=== PATIENT | female | born 1995 | race Caucasian/White ===

== ENCOUNTER 2022-05-16 09:46 | Outpatient (CLI) | payer OTHER, SELFPAY ==
[2022-05-16 10:42] LABS: Beta HCG Quantitative 132.88 mIU/ML
== END 2022-05-16 09:47 | disposition home or self-care (01) ==
LOC: ANHLAB 09:48
PROVIDERS: Visit Provider Obstetrics & Gynecology
DX: O26.851 Spotting complicating pregnancy, first trimester (principal)
CPT/HCPCS: 36415; 84702

== ENCOUNTER 2022-05-18 15:31 | Outpatient (CLI) | payer OTHER, SELFPAY ==
[2022-05-18 21:44] LABS: Beta HCG Quantitative 30.49 mIU/ML
[2022-05-24 18:11] LABS: Progesterone 0.7 ng/mL (***)
== END 2022-05-18 15:32 | disposition home or self-care (01) ==
LOC: ANHLAB 15:33
PROVIDERS: Visit Provider Obstetrics & Gynecology
DX: O26.851 Spotting complicating pregnancy, first trimester (principal); Z3A.00 Weeks of gestation of pregnancy not specified
CPT/HCPCS: 36415; 84144; 84702

== ENCOUNTER 2022-05-22 15:22 | Outpatient (CLI) | payer OTHER, SELFPAY | END 2022-05-22 15:23 | disposition home or self-care (01) | PROVIDERS: Visit Provider Obstetrics & Gynecology | DX: O03.9 Complete or unspecified spontaneous abortion without complication (principal) | CPT/HCPCS: 36415; 86850; 86900; 86901 ==

== ENCOUNTER 2022-06-02 15:53 | Outpatient (CLI) | payer OTHER, SELFPAY ==
[2022-06-02 16:36] LABS: Beta HCG Quantitative < 2.39 mIU/ML
== END 2022-06-02 15:54 | disposition home or self-care (01) ==
LOC: ANHLAB 15:55
PROVIDERS: Visit Provider Obstetrics & Gynecology
DX: O03.9 Complete or unspecified spontaneous abortion without complication (principal)
CPT/HCPCS: 36415; 84702

== ENCOUNTER 2022-06-10 16:50 | Outpatient (CLI) | payer OTHER, SELFPAY ==
[2022-06-14 05:15] LABS: Progesterone 20.7 ng/mL (***)
== END 2022-06-10 16:51 | disposition home or self-care (01) ==
PROVIDERS: Visit Provider Obstetrics & Gynecology
DX: O09.299 Supervision of pregnancy with other poor reproductive or obstetric history, unspecified trimester (principal)
CPT/HCPCS: 36415; 84144; 84702

== ENCOUNTER 2022-06-12 15:43 | Outpatient (CLI) | payer OTHER, SELFPAY | END 2022-06-12 15:44 | disposition home or self-care (01) | LOC: ANHLAB 15:45 | PROVIDERS: Visit Provider Obstetrics & Gynecology | DX: O09.299 Supervision of pregnancy with other poor reproductive or obstetric history, unspecified trimester (principal); Z3A.00 Weeks of gestation of pregnancy not specified | CPT/HCPCS: 36415; 84702 ==

== ENCOUNTER 2022-06-23 15:20 | Outpatient (CLI) | payer OTHER, SELFPAY ==
--- NOTE | ~2022-06-23 | US_ITS ---
US OB <=14 wk fetus w TV DATE: 06/23/2022 16:07 INDICATION: Brownish vaginal discharge. Positive test. Unknown last menstrual period. TECHNIQUE: Real-time imaging and Doppler analysis of the pelvis via transabdominal and transvaginal a pproaches COMPARISON: None FINDINGS: The uterus measures 7.5 cm height, 4.2 cm AP and 5.3 cm transverse dimension. There is a no rmal-appearing gestational sac with normal surrounding decidual reaction. pole is identified wi th crown-rump length of 0.25 cm consistent with estimated gestational age of 5 weeks 6 days +/- 4 day s and VITALY of 02/17/2023. heart rate of 129 bpm. The right ovary is not visualized. Left ovary measures 3.4 x 2.7 x 3.3 cm. No pelvic mass or abnormal free pelvic fluid collection is detected. IMPRESSION: Estimated gestational age of 5 weeks 6 days +/- 4 days; VITALY: 02/17/2023 Reviewed, dictated and finalized at Location [facility]. Reviewed, dictated and finalized at location A. RUNNER IMPRESSION: Estimated gestational age of 5 weeks 6 days +/- 4 days; VITALY: 023
== END 2022-06-23 15:21 | disposition home or self-care (01) ==
LOC: ANHIMG 15:21
PROVIDERS: Visit Provider Obstetrics & Gynecology
DX: O26.851 Spotting complicating pregnancy, first trimester (principal); Z3A.01 Less than 8 weeks gestation of pregnancy
CPT/HCPCS: 76801; 76817

== ENCOUNTER 2022-06-23 16:21 | Outpatient (CLI) | payer OTHER, SELFPAY | END 2022-06-23 16:22 | disposition home or self-care (01) | LOC: ANHLAB 16:22 | PROVIDERS: Visit Provider Obstetrics & Gynecology | DX: O26.851 Spotting complicating pregnancy, first trimester (principal) | CPT/HCPCS: 36415; 76801; 76817; 84702 ==

== ENCOUNTER 2022-07-10 12:49 | Outpatient (CLI) | payer OTHER, SELFPAY ==
[2022-07-10 13:11] LABS: Basophils Absolute Auto 0.1 K/mm3 (0.0-0.1); Basophils Percent Auto 0.5 % (0.2-1.2); Eosinophils Absolute Auto 0.2 K/mm3 (0-0.3); Eosinophils Percent Auto 1.7 % (0-4.4); Hematocrit 37.9 % (37.0-47.0); Hemoglobin 12.9 g/dL (12.0-15.0); Immature Granulocyte Absolute 0.06 K/mm3 (0.00-0.031); Immature Granulocyte Percent A 0.5 % (0-0.5); Lymphocytes Absolute Auto 1.96 K/mm3 (0.9-3.2); Lymphocytes Percent Auto 17.9 % (18.3-44.2); Mean Corpuscular Hemoglobin 28.9 pg (26-34); Monocytes Absolute Auto 0.8 K/mm3 (0.1-0.6); Monocytes Percent Auto 7.3 % (2.6-8.5); Neutrophils Absolute Auto 7.9 K/mm3 (1.3-6.7); Neutrophils Percent Auto 72.1 % (45.5-73.1); Platelet Count Result 265 k/mm3 (150-375); Red Blood Count 4.46 M/mm3 (4.2-5.4); Red Cell Distribution Width 12.5 % (11.5-14.5); White Blood Count 10.9 K/mm3 (4.5-10.0)
[2022-07-10 13:11] LABS: Add Urine Microscopic? NO; Appearance Urine Clear (Clear); Bilirubin Urine Negative (Negative); Blood Urine Negative (Negative); Color Urine Yellow (Yellow); Glucose Urine UA Negative (Negative); Ketones Urine Negative (Negative); Leukocyte Esterase Ur Negative LEU/UL (NEGATIVE); Nitrate Urine Negative (Negative); Protein Urine Negative (Negative); Specific Grav Ur >= 1.030 (1.001-1.035); Urobilinogen Urine 0.2 mg/dL (<2.0)
[2022-07-10 13:18] LABS: Bacteria Urine Trace /hpf; RBC Urine 0-2 /hpf (0-2); Squamous Epithelial Cell Urine Few /hpf (Few)
[2022-07-10 14:11] LABS: HIV 1/2 Ab P24 Ag Result Negative (Negative)
[2022-07-10 14:44] LABS: Vitamin D 25 Hydroxy 28.5 ng/mL
[2022-07-10 15:05] LABS: Hepatitis B Surface Antigen Negative (Negative); Rubella IgG Antibody 13.8 IU/ML
[2022-07-10 15:16] LABS: Hepatitis C Virus Antibody Negative (Negative)
[2022-07-13 09:22] LABS: Rapid Plasma Reagin Non-Reactive (NonReactive)
[2022-07-15 17:01] LABS: Hematocrit 38.1 % (35.0-45.0); Hemoglobin 12.9 g/dL (11.7-15.5); MCH 29.3 pg (27.0-33.0); MCV 86.6 fL (80.0-100.0); RDW 12.4 % (11.0-15.0)
== END 2022-07-10 12:50 | disposition home or self-care (01) ==
LOC: ANHLAB 12:50
PROVIDERS: Visit Provider Obstetrics & Gynecology
DX: Z34.90 Encounter for supervision of normal pregnancy, unspecified, unspecified trimester (principal); Z3A.00 Weeks of gestation of pregnancy not specified
CPT/HCPCS: 36415; 81003; 82306; 83021; 84443; 85025; 86592; 86703; 86762; 86787; 86803; 86850; 86900; 86901; 87086; 87340; G0432

== ENCOUNTER 2022-11-21 08:05 | Outpatient (CLI) | payer OTHER, SELFPAY ==
[2022-11-21 09:31] LABS: Basophils Absolute Auto 0.1 K/mm3 (0.0-0.1); Basophils Percent Auto 0.6 % (0.2-1.2); Eosinophils Absolute Auto 0.1 K/mm3 (0-0.3); Eosinophils Percent Auto 0.6 % (0-4.4); Hematocrit 34.6 % (37.0-47.0); Hemoglobin 11.7 g/dL (12.0-15.0); Immature Granulocyte Percent A 1.9 % (0-0.5); Lymphocytes Absolute Auto 1.46 K/mm3 (0.9-3.2); Lymphocytes Percent Auto 13.5 % (18.3-44.2); Mean Corpuscular HGB Conc 33.8 g/dl (32-36); Mean Corpuscular Hemoglobin 30.8 pg (26-34); Mean Corpuscular Volume 91.1 fl (80-100); Mean Platelet Volume 9.3 fl (7.4-10.4); Monocytes Absolute Auto 0.6 K/mm3 (0.1-0.6); Monocytes Percent Auto 5.5 % (2.6-8.5); Neutrophils Absolute Auto 8.4 K/mm3 (1.3-6.7); Neutrophils Percent Auto 77.9 % (45.5-73.1); Platelet Count Result 227 k/mm3 (150-375); Red Cell Distribution Width 12.8 % (11.5-14.5); White Blood Count 10.8 K/mm3 (4.5-10.0)
[2022-11-21 09:43] LABS: Glucose 1 Hour PP 50gm Dose 135 mg/dL
== END 2022-11-21 08:06 | disposition home or self-care (01) ==
LOC: ANHLAB 08:06
PROVIDERS: Visit Provider Registered Nurse
DX: Z34.90 Encounter for supervision of normal pregnancy, unspecified, unspecified trimester (principal); Z3A.00 Weeks of gestation of pregnancy not specified
CPT/HCPCS: 36415; 82947; 85025

== ENCOUNTER 2022-12-01 06:32 | Outpatient (CLI) | payer OTHER, SELFPAY ==
[2022-12-01 06:56] LABS: Glucose Fasting Gestational 80 mg/dL (>/=95)
[2022-12-01 08:33] LABS: Glucose 1 Hour Gest 115 mg/dL (>/=180)
[2022-12-01 09:47] LABS: Glucose 2 Hour Gest 85 mg/dL (>/= 155)
[2022-12-01 10:33] LABS: Glucose 3 Hour Gest 140 mg/dL (>/=140)
== END 2022-12-01 06:33 | disposition home or self-care (01) ==
PROVIDERS: Visit Provider Registered Nurse
DX: O99.810 Abnormal glucose complicating pregnancy (principal); Z3A.00 Weeks of gestation of pregnancy not specified
CPT/HCPCS: 36415; 82951; 82952

== ENCOUNTER 2022-12-31 14:17 | Outpatient (CLI) | payer OTHER, SELFPAY ==
[2022-12-31 15:03] LABS: Basophils Percent Auto 0.4 % (0.2-1.2); Eosinophils Absolute Auto 0.1 K/mm3 (0-0.3); Eosinophils Percent Auto 0.5 % (0-4.4); Hematocrit 33.5 % (37.0-47.0); Hemoglobin 11.1 g/dL (12.0-15.0); Immature Granulocyte Percent A 1.9 % (0-0.5); Lymphocytes Absolute Auto 1.81 K/mm3 (0.9-3.2); Lymphocytes Percent Auto 16.9 % (18.3-44.2); Mean Corpuscular HGB Conc 33.1 g/dl (32-36); Mean Corpuscular Hemoglobin 30.4 pg (26-34); Mean Corpuscular Volume 91.8 fl (80-100); Mean Platelet Volume 10.2 fl (7.4-10.4); Monocytes Absolute Auto 0.8 K/mm3 (0.1-0.6); Monocytes Percent Auto 7.7 % (2.6-8.5); Neutrophils Absolute Auto 7.8 K/mm3 (1.3-6.7); Neutrophils Percent Auto 72.6 % (45.5-73.1); Platelet Count Result 223 k/mm3 (150-375); Red Blood Count 3.65 M/mm3 (4.2-5.4); Red Cell Distribution Width 13.4 % (11.5-14.5); White Blood Count 10.7 K/mm3 (4.5-10.0)
[2022-12-31 15:56] LABS: HIV 1/2 Ab P24 Ag Result Negative (Negative)
[2023-01-01 13:43] LABS: Rapid Plasma Reagin Non-Reactive (NonReactive)
== END 2022-12-31 14:18 | disposition home or self-care (01) ==
LOC: ANHLAB 14:19
PROVIDERS: Visit Provider Registered Nurse
DX: Z34.90 Encounter for supervision of normal pregnancy, unspecified, unspecified trimester (principal)
CPT/HCPCS: 36415; 85025; 86592; 86703; G0432

== ENCOUNTER 2023-02-04 09:19 | Outpatient (CLI) | payer OTHER, SELFPAY ==
--- NOTE | ~2023-02-04 | US_ITS ---
EXAMINATION: US OB limited DATE: 02/04/2023 10:58 INDICATION: Hypertension. Third trimester. TECHNIQUE: Real-time ultrasound of the pelvis was performed. COMPARISON: Ultrasound 06/23/2022 FINDINGS: There is a single fetus in vertex presentation. The placenta is on the left. heart rate is 151 beats per minute (bpm). The amniotic fluid index is 15.2 cm, which is normal. IMPRESSION: 1. Single living fetus in vertex presentation. 2. Normal amniotic fluid index. Reviewed, dictated and finalized at location L.
[2023-02-04 09:46] VITALS: BP 142/92; PULSE 87
[2023-02-04 10:01] VITALS: BP 145/88; PULSE 82
[2023-02-04 10:04] LABS: Basophils Percent Auto 0.3 % (0.2-1.2); Eosinophils Absolute Auto 0.1 K/mm3 (0-0.3); Eosinophils Percent Auto 0.6 % (0-4.4); Hemoglobin 12.3 g/dL (12.0-15.0); Immature Granulocyte Percent A 0.9 % (0-0.5); Lymphocytes Absolute Auto 1.31 K/mm3 (0.9-3.2); Lymphocytes Percent Auto 11.3 % (18.3-44.2); Mean Corpuscular HGB Conc 33.2 g/dl (32-36); Mean Corpuscular Hemoglobin 30.4 pg (26-34); Mean Corpuscular Volume 91.4 fl (80-100); Mean Platelet Volume 10.2 fl (7.4-10.4); Monocytes Absolute Auto 0.9 K/mm3 (0.1-0.6); Monocytes Percent Auto 7.8 % (2.6-8.5); Neutrophils Absolute Auto 9.1 K/mm3 (1.3-6.7); Neutrophils Percent Auto 79.1 % (45.5-73.1); Platelet Count Result 210 k/mm3 (150-375); Red Blood Count 4.05 M/mm3 (4.2-5.4); Red Cell Distribution Width 13.6 % (11.5-14.5); White Blood Count 11.6 K/mm3 (4.5-10.0)
[2023-02-04 10:13] LABS: Alanine Aminotransferase 21 U/L (6-35); Albumin Level 3.7 g/dL (3.5-5.1); Alkaline Phosphatase 124 U/L (38-126); Anion Gap 5 mmol/L (8-16); Aspartate Amino Transferase 21 U/L (14-36); Bilirubin,Total 0.2 mg/dL (0.2-1.3); Blood Urea Nitrogen 6 mg/dL (7-17); Calcium 9.2 mg/dL (8.4-10.2); Carbon Dioxide 23 mmol/L (22-30); Chloride 106 mmol/L (98-107); Estimated Glomerular Filt Rate > 60; Glucose 88 mg/dL (65-110); Potassium 3.6 mmol/L (3.4-5.0); Sodium 134 mmol/L (137-145); Uric Acid 3.6 mg/dL (2.5-7.5)
[2023-02-04 10:16] VITALS: BP 141/84; PULSE 85
[2023-02-04 10:28] VITALS: BP 142/92
[2023-02-04 10:31] VITALS: BP 144/90; PULSE 74
[2023-02-04 10:38] LABS: Creatinine Urine 42.3 mg/dL; Total Protein Urine Random 19 mg/dL; Ur Ttl Prot Creatinine Ratio 0.45 mg/mg (0-0.20)
[2023-02-04 10:39] LABS: Appearance Urine Cloudy (Clear); Bacteria Urine None Seen /hpf; Bilirubin Urine Negative (Negative); Blood Urine Negative (Negative); Color Urine Yellow (Yellow); Glucose Urine UA Negative (Negative); Ketones Urine Negative (Negative); Leukocyte Esterase Ur Trace LEU/UL (NEGATIVE); Nitrate Urine Negative (Negative); Non Pathogenic Casts 0-2; Protein Urine Negative (Negative); RBC Urine 0-2 /hpf (0-2); Specific Grav Ur 1.009 (1.001-1.035); Squamous Epithelial Cell Urine Occasional /hpf (Few); Urobilinogen Urine 0.2 mg/dL (<2.0); WBC Urine 0-5 /hpf (0-3); pH Urine 7.5 (5.0-9.0)
[2023-02-04 11:01] VITALS: BP 137/91; PULSE 79
[2023-02-04 11:03] LABS: Add Urine Microscopic? YES
== END 2023-02-04 11:22 | disposition home or self-care (01) ==
LOC: ANHOBOP 09:32 → ANHOBPP 09:33
PROVIDERS: Visit Provider Obstetrics & Gynecology
DX: O13.9 Gestational [pregnancy-induced] hypertension without significant proteinuria, unspecified trimester (principal); Z3A.00 Weeks of gestation of pregnancy not specified
CPT/HCPCS: 36415; 59025; 76815; 80053; 81001; 82570; 84156; 84550; 85025; 87086; 87088; 99199

== ENCOUNTER 2023-02-05 12:52 | Outpatient (NON) | payer OTHER, SELFPAY ==
[2023-02-05 13:59] VITALS: BMI 34.8
[2023-02-05 14:19] LABS: Collection Time Urine 24 HOURS
[2023-02-05 14:43] LABS: Total Volume 24 Hour Urine 3000 ml
[2023-02-05 14:54] LABS: Total Protein Urine Random 21 mg/dL
[2023-02-05 14:56] LABS: Creatinine Clearance Urine 178.7 ml/min (75-125); Creatinine Urine 49.8 mg/dL; Patient Weight 209 Lbs
[2023-02-05 15:03] LABS: Specific Gravity Ur 1.015; Total Protein Urine 24 Hr 630 mg/24hr (28-141); Total Volume 24 Hour Urine 3000 ml
== END 2023-02-05 12:53 | disposition home or self-care (01) ==
LOC: ANHOBOP 13:16
PROVIDERS: Visit Provider Obstetrics & Gynecology
DX: Z34.90 Encounter for supervision of normal pregnancy, unspecified, unspecified trimester (principal); Z3A.00 Weeks of gestation of pregnancy not specified
CPT/HCPCS: 81050; 82575; 84156

== ENCOUNTER 2023-02-08 09:47 | Outpatient (RCR) | payer OTHER, SELFPAY ==
--- NOTE | ~2023-02-08 | US_ITS ---
EXAMINATION: US OB limited DATE: 02/08/2023 11:01 INDICATION: Hypertension TECHNIQUE: Real-time ultrasound of the pelvis was performed. The interpreting radiologist was not pre sent for the study. COMPARISON: None. FINDINGS: There is a single living fetus in vertex presentation. The placenta is on the left with a small cent ral anechoic placental [place]. heart rate is 137 beats per minute (bpm). The amniotic fluid index is 8.4 cm, which is normal (5th%-95%: 7.3-23.9 cm at 38 weeks estimated gestational age). IMPRESSION: 1. Single living fetus in vertex presentation with heart rate of 137 bpm. 2. Normal amniotic fluid index of 8.4 cm. Reviewed, dictated and finalized at location B. IMPRESSION: 1. Single living fetus in vertex presentation with heart rate of 137 bpm . 2. Normal amniotic fluid index of 8.4 cm.
[2023-02-08 12:01] VITALS: BP 134/85
== END 2023-02-08 10:00 | disposition home or self-care (01) ==
LOC: ANHOBOP 09:47
PROVIDERS: Visit Provider Obstetrics & Gynecology
DX: O26.893 Other specified pregnancy related conditions, third trimester (principal); R03.0 Elevated blood-pressure reading, without diagnosis of hypertension; Z3A.38 38 weeks gestation of pregnancy
CPT/HCPCS: 59025; 76815

== ENCOUNTER 2023-02-08 12:30 | Inpatient (IN) | payer OTHER, SELFPAY ==
[2023-02-08] VITALS (25 sets, daily range): BP systolic 121–158; BP diastolic 78–101; PULSE 93–115; RESP 16; TEMP 36.1–36.6; BMI 34.1
[2023-02-08 13:25] LABS: Basophils Percent Auto 0.3 % (0.2-1.2); Eosinophils Absolute Auto 0.1 K/mm3 (0-0.3); Eosinophils Percent Auto 0.8 % (0-4.4); Hematocrit 38.8 % (37.0-47.0); Immature Granulocyte Absolute 0.12 K/mm3 (0.00-0.031); Lymphocytes Absolute Auto 1.52 K/mm3 (0.9-3.2); Lymphocytes Percent Auto 12.4 % (18.3-44.2); Mean Corpuscular HGB Conc 33.5 g/dl (32-36); Mean Corpuscular Hemoglobin 30.7 pg (26-34); Mean Corpuscular Volume 91.5 fl (80-100); Mean Platelet Volume 10.4 fl (7.4-10.4); Monocytes Absolute Auto 0.9 K/mm3 (0.1-0.6); Monocytes Percent Auto 7.2 % (2.6-8.5); Neutrophils Absolute Auto 9.6 K/mm3 (1.3-6.7); Neutrophils Percent Auto 78.3 % (45.5-73.1); Platelet Count Result 206 k/mm3 (150-375); Red Blood Count 4.24 M/mm3 (4.2-5.4); Red Cell Distribution Width 13.7 % (11.5-14.5); White Blood Count 12.3 K/mm3 (4.5-10.0)
[2023-02-08 13:36] LABS: Alanine Aminotransferase 21 U/L (6-35); Albumin Level 3.9 g/dL (3.5-5.1); Alkaline Phosphatase 165 U/L (38-126); Anion Gap 6 mmol/L (8-16); Aspartate Amino Transferase 23 U/L (14-36); Bilirubin,Total 0.3 mg/dL (0.2-1.3); Blood Urea Nitrogen 7 mg/dL (7-17); Calcium 9.2 mg/dL (8.4-10.2); Carbon Dioxide 20 mmol/L (22-30); Chloride 105 mmol/L (98-107); Estimated CRCL calculation 197 ml/min; Estimated Glomerular Filt Rate > 60; Glucose 84 mg/dL (65-110); Potassium 3.7 mmol/L (3.4-5.0); Sodium 131 mmol/L (137-145); Uric Acid 3.7 mg/dL (2.5-7.5)
[2023-02-08] MEDS: DINOPROSTONE 10 MG VAG INSERT VAGINAL (14:25)
[2023-02-08 15:50] LABS: Rapid Plasma Reagin Non-Reactive (NonReactive)
--- NOTE | 2023-02-08 17:09 | PM.IMHP ---
H&P: HPI History of Present Illness Date/Time: 02/08/23 17:09 Chief Complaint: Pre-eclampsia Narrative: She is a at 38 5/7 weeks by 8 week ultrasound. She presented for surveillance testing due to having first episode of increased blood pressure Fri. 24 hour urine results from the weekend >600mg/24 hr. Blood pressure on L and D 130-150/70-90. She was admitted for pre-eclampsia without severe features. She denies headache, scotomata or RUQ pain. Review of Systems Review of Systems: All systems reviewed & are unremarkable except as noted in HPI and below Constitutional: Constitutional: Reports no additional constitutional complaints and Denies headache(s) Eyes: Eyes: Denies spots in vision ENT: Reports system reviewed and no additional complaints, except as documented and Denies headache(s) Cardiovascular: Cardiovascular: Denies chest pain and Denies dyspnea Respiratory: Respiratory: Denies dyspnea Gastrointestinal: Gastrointestinal: Reports no additional gastrointestinal complaints Genitourinary: Genitourinary: Reports amenorrhea Musculoskeletal: Musculoskeletal: Reports no additional musculoskeletal complaints Integumentary/Breasts: Skin/Breast: Denies breast mass and Denies rash Neurologic: Denies headache(s) Psychiatric: Psychiatric: Reports no additional psychiatric complaints PMF Past Medical History Medical History Spotting during in first trimester Family History Family History Grandparent Cancer Social History Social History Smoking status: Never smoker Alcohol intake: never Substance use: never Lack of Transportation: No Lack of Food: Never True Current Housing: I Have Housing Concerned About Future Housing: No Difficulty Paying Gas/Electric Bills: No Difficulty Paying for Meds: No Currently Unemployed: No Education: Don't Know Difficulty w/ Childcare or Family Care: No Living arrangements: with family Occupation/Education: occupation Gender identity (if verbalized by the patient): Female Sexual Orientation (if Verbalized by the Patient): Straight or Heterosexual Spiritual care concerns: No Meds Home Medications and Allergies Home Medications Medication Instructions Recorded Confirmed Type vits 75-iron 28 mg-folic 1 pkg PO DAILY 05/14/22 01/29/23 History acid 800 mcg-omega-3 oral combo pack (One A Day Women's DHA) Allergies Allergy/AdvReac Type Severity Reaction Status Date / Time No Known Allergies Allergy Verified 02/04/23 08:41 Vital Signs Vital Signs - 24 hr 02/08/23 13:00 02/08/23 13:06 02/08/23 13:23 Temperature 97 F L Pulse Rate 103 H Blood Pressure 145/95 H Oxygen Delivery Room Air 02/08/23 13:31 02/08/23 13:46 02/08/23 14:01 Temperature Pulse Rate 106 H 111 H 104 H Blood Pressure 150/90 H 149/91 H 158/100 H Oxygen Delivery 02/08/23 14:31 02/08/23 14:46 02/08/23 15:01 Temperature Pulse Rate 115 H 114 H 108 H Blood Pressure 134/87 143/97 H 139/82 Oxygen Delivery 02/08/23 15:31 02/08/23 16:01 02/08/23 16:31 Temperature Pulse Rate 112 H 101 H 108 H Blood Pressure 141/86 H 121/97 H 143/88 H Oxygen Delivery 02/08/23 17:01 Temperature Pulse Rate 105 H Blood Pressure 158/90 H Oxygen Delivery Exam Const: General: no acute distress Eyes: General: appearance normal, both eyes and all related structures Resp: Effort & Inspection: normal respiratory effort Cardio: Rate: regular rate GI: Other: Gravid no fundal tenderness no right upper quadrant pain : Other: cervix 30/-4 Skin: General skin exam: no rashes or lesions noted Neuro: Cognition (Neuro): normal cognition Extrem: General: normal to inspection Psych: Mental Stat
--- NOTE | 2023-02-08 17:50 | WPDANESEPP ---
Anes - Eval Pre Procedure Procedure: Labor epidural Date/Time: 02/08/23 17:50 Surgeon: Princess Preop Diagnosis: Abdominal pain with contractions Pre Op Diagnosis: Induction of Labor Patient Data Age: 27 Gender: F Height: 1.65 m Weight: 93 kg Last Vital Signs Temp 97 F L 02/08/23 13:06 Pulse 109 H 02/08/23 17:31 BP 143/90 H 02/08/23 17:31 O2 Del Method Room Air 02/08/23 13:00 Allergies Allergy/AdvReac Type Severity Reaction Status Date / Time No Known Allergies Allergy Verified 02/04/23 08:41 Home Medications Medication Instructions Recorded Confirmed Type vits 75-iron 28 mg-folic 1 pkg PO DAILY 05/14/22 01/29/23 History acid 800 mcg-omega-3 oral combo pack (One A Day Women[facility] DHA) Laboratory Tests 02/08/23 12:54 WBC 12.3 H K/mm3 (4.5-10.0) RBC 4.24 M/mm3 (4.2-5.4) Hgb 13.0 g/dL (12.0-15.0) Hct 38.8 % (37.0-47.0) MCV 91.5 fl (80-100) MCH 30.7 pg (26-34) MCHC 33.5 g/dl (32-36) RDW 13.7 % (11.5-14.5) Plt Count 206 k/mm3 (150-375) MPV 10.4 fl (7.4-10.4) Immature Gran % (Auto) 1.0 H % (0-0.5) Neut % (Auto) 78.3 H % (45.5-73.1) Lymph % (Auto) 12.4 L % (18.3-44.2) Moffat % (Auto) 7.2 % (2.6-8.5) Eos % (Auto) 0.8 % (0-4.4) Baso % (Auto) 0.3 % (0.2-1.2) Lymph # (Auto) 1.52 K/mm3 (0.9-3.2) Moffat # (Auto) 0.9 H K/mm3 (0.1-0.6) Eos # (Auto) 0.1 K/mm3 (0-0.3) Baso # (Auto) 0.0 K/mm3 (0.0-0.1) Abs Immat Gran (auto) 0.12 H K/mm3 (0.00-0.031) Absolute Neuts (auto) 9.6 H K/mm3 (1.3-6.7) Absolute Nucleated RBC 0.0 K/mm3 (0.0-0.012) Nucleated RBC % 0.0 % (0.0-0.2) Sodium 131 L mmol/L (137-145) Potassium 3.7 mmol/L (3.4-5.0) Chloride 105 mmol/L (98-107) Carbon Dioxide 20 L mmol/L (22-30) Anion Gap 6 L mmol/L (8-16) BUN 7 mg/dL (7-17) Creatinine 0.40 L mg/dL (0.7-1.0) Estim Creat Clear Calc 197 ml/min Estimated GFR > 60 (59 - ) Glucose 84 mg/dL (65-110) Uric Acid 3.7 mg/dL (2.5-7.5) Calcium 9.2 mg/dL (8.4-10.2) Total Bilirubin 0.3 mg/dL (0.2-1.3) AST 23 U/L (14-36) ALT 21 U/L (6-35) Alkaline Phosphatase 165 H U/L (38-126) Total Protein 7.0 g/dL (6.3-8.2) Albumin 3.9 g/dL (3.5-5.1) RPR Non-reactive (NonReactive) Blood Type O Positive Antibody Screen Negative : gestational age HCG: positive Patient hx anesthesia problems: none Family hx anesthesia problems: none Results Review: All pre-operative results and documents have been reviewed as part of the pre-operative evaluation. [facility] Past Medical History Medical History Obesity Pre-eclampsia Spotting during in first trimester Family History Family History Grandparent Cancer Social History Social History Smoking status: Never smoker Alcohol intake: never Substance use: never Lack of Transportation: No Lack of Food: Never True Current Housing: I Have Housing Concerned About Future Housing: No Difficulty Paying Gas/Electric Bills: No Difficulty Paying for Meds: No Currently Unemployed: No Education: Don't Know Difficulty w/ Childcare or Family Care: No Living arrangements: with family Occupation/Education: occupation Gender identity (if verbalized by the patient): Female Sexual Orientation (if Verbalized by the Patient): Straight or Heterosexual Spiritual care concerns: No Exam Day of Procedure 02/08/23 17:50 Patient weight: obese Airway: Mallampati scale class II
[2023-02-09] VITALS (197 sets, daily range): BP systolic 111–160; BP diastolic 58–102; PULSE 78–117; RESP 18; TEMP 36.3–36.9; O2SAT 92–100
[2023-02-09] MEDS: LACTATED RINGERS 1,000 ML 125 ML IV CONT ×4 (03:29→21:02)
[2023-02-09] MEDS: OXYTOCIN 30 UNITS/NS 500 ML 30 UNITS/500 ML BAG 6 UNITS IV CONT (03:29)
[2023-02-09] MEDS: ONDANSETRON INJ 4 MG/2 ML VIAL IV PUSH ×2 (10:38→18:33)
[2023-02-09] MEDS: fentaNYL CITRATE INJ (*CRX) 100 MCG/2 ML VIAL IV PUSH ×3 (10:40→13:23)
--- NOTE | 2023-02-09 16:45 | PM.OBPNLAB ---
Pain Control Date/time seen: 02/09/23 0845 heart tones 135, category 1, cervix 2 60% minus 2, AROM, clear.
[2023-02-10] VITALS (136 sets, daily range): BP systolic 119–186; BP diastolic 66–158; PULSE 25–241; RESP 16–18; TEMP 36.4–38.9; O2SAT 78–100
[2023-02-10] MEDS: AMPICILLIN 2 GM/NS 100 ML 2 GM/100 ML BAG IVPB (02:30)
[2023-02-10] MEDS: AMPICILLIN 1 GM/NS 50 ML 1 GM/50 ML BAG IVPB (06:21)
[2023-02-10] MEDS: miSOPROStol 200 MCG TABLET 800 MCG (07:26)
[2023-02-10] MEDS: LIDOCAINE HCL 1% LOCAL INJ 20 ML VIAL (07:28)
[2023-02-10] MEDS: OXYTOCIN 30 UNITS/NS 500 ML 30 UNITS/500 ML BAG 125 UNITS IV CONT (07:41)
--- NOTE | 2023-02-10 08:10 | PM.OBPRVD ---
OB - Delivery Note Procedure Delivery date: 02/10/23 Procedure: Spontaneous vaginal delivery Events: Preeclampsia w/o severe features Induction method: Per Misoprostol Protocol Delivery augmentation: Rupture of Membranes and Pitocin Delivery monitor: External FHT and Internal Uterine Route of delivery: Laceration Description: Perineal - 2nd Degree Delivery repair: vicryl (3.0 Vicryl) Specimen: Yes (Placenta and cord) Quantitative Blood Loss (ml): 300 Anesthesia type: Epidural Disposition: Floor Complications: uterine hypotonia. Narrative: She was admitted for medical induction of labor due to preeclampsia without severe features. She had Cervidil. After Cervidil she was started on Pitocin. She had assisted rupture of membranes the morning of February 09. Continue Pitocin to augment labor she had episodes intermittent of uterine tachy systole and the Pitocin had to be I decreased and stopped due to this. She was in latent labor for approximately 16 hours. Ampicillin was started for prolonged rupture of membranes. She progressed to active labor. She pushed for approximately an hour. Approximately 20 minutes into pushing she did have a temperature of 101? it did get to 102.5 while pushing. It did go to 99 after pushing. Less than an hour after pushing. She delivered a female . The mouth were suction at the perineum with gentle posterior traction anterior shoulder of the was delivered and rest the was delivered. Infant was vigorously crying and placed on maternal abdomen. Delayed cord clamping for approximately 45 seconds. There was noted to be to lose true knots in the cord. Placenta was started. The placenta was delivered intact. Patient started having some bleeding the air there was uterine massage performed and the lower uterus was evacuated of a small amount of clot. A red [place] catheter was inserted into the bladder minimal urine obtained. At time the IV with Pitocin was not working well, this did soon get corrected. She had intermittent episodes of hypotonia and therefore 800 mcg of Cytotec was inserted rectally. The uterine tone improved. She did sustain a second-degree perineal laceration repaired with 3-0 Vicryl. Uterus was firm. Sponge count correct. Patient tolerated procedure well. [place] Baby Date of : 02/10/23 Time of : 07:05 Weeks of gestation at delivery: 39 gender: Female Weight (pounds): 6 Weight (ounces): 14 presentation: vertex position: Right Occiput Anterior Placenta delivery description: Expressed Cord Vessel Description: 3 Vessels, True Knot (X2), Loose, Clamped/Cut (After 45 seconds and cord was a pulsatile) and Delayed Cord Clamping score one minute: 9 score five minutes: 9 AMG Delivery Billing Delivery Delivery: Delivery Charge
[2023-02-10] MEDS: ACETAMINOPHEN 325 MG TABLET 650 MG PO (09:15)
[2023-02-10] MEDS: WITCH HAZEL 40 PADS 1 PAD TOPICAL (09:17)
[2023-02-10] MEDS: BENZOCAINE 20% AER SPR (*SP) 56 GM CAN 1 SPRAY TOPICAL (09:17)
--- NOTE | 2023-02-10 09:50 | OBPPTRN ---
Patient transferred to post room #288 via wheelchair. Support person present. Oriented to unit, room, information board, rooming in, admission packet and security measures. Patient verbalizes understanding.
[2023-02-10] MEDS: DOCUSATE SODIUM 100 MG CAPSULE PO (13:14)
[2023-02-10] MEDS: MULTIVIT/MIN/PREN/FOL AC/IRON TABLET 1 TAB PO (13:14)
[2023-02-10] MEDS: IBUPROFEN 600 MG TABLET PO ×2 (13:14→19:23)
--- NOTE | 2023-02-10 14:26 | PC.NURSE ---
[id number] Introductions were made, then consulted with patient to assess needs related to . Mother is in laid-back position with infant skin-to skin. Mother led the conversation with her?plans to feed?her infant, the?experience so far and states infant breastfed downstairs. RN visualizes a purple line across the middle of the left nipple. Mother works well with her with encouragement and education. Encouraged understanding of the benefits of skin to skin (demonstrating unwrapping and placing upright on her chest), stimulating with massage touch, changing positions to encourage wakefulness, how to watch for early feeding cues, responsive feeding, feeding on demand (aiming for 8-12 times in 24 hours, about every 2-3 hours), milk production, hand expression, building/maintaining a milk supply, duration of feeding, signs of adequate intake/output and how to record on the feeding sheet. Reviewed positioning, supporting the breast to facilitate a deep latch, asymmetrical latch (off-center), leading with the chin with a big, open, wide gape and body close to mother. Using hand support of the breast infant opens, wide to latch, however holds the nipple in the mouth or falls asleep. Nipple care reviewed with optimal latch and good positioning. Hand expressed colostrum is fed to the and infant remains sleepy and reluctant to breastfeed. Reviewed good handwashing when or touching the breast/nipples to prevent infection. Resources used to facilitate learning were used with the visual handouts, tool, mom and baby guide. Mother voiced understanding of skin to skin, stimulating with massage touch, responsive feedings, hand expressed colostrum, talking to infant to encourage if it has been 2 -2.5 hours since the start of the last , to call if does not latch, or if there is discomfort with . Resources provided for inpatient/outpatient with feeding sheet, name written on the communication board and the mom/baby guide. Parents voiced understanding of information, demonstrated learning and will call if there is a request for assistance. Reported to the primary RN.
--- NOTE | 2023-02-10 16:05 | PC.NURSE ---
[id number] Consulted with patient to assess needs related to . Mother works well with her infant with encouragement. Reviewed working with infant, supporting breast and how to protect the nipples with an optimal deep latch, good positioning, and good hand washing. Encouraged understanding the benefits of skin to skin, responding to feeding cues, frequencies of feeding 8-12 times in 24 hours (approximately 2-3 hours), duration of feedings, milk production and signs of adequate intake encouraging swallowing at the breast. Reviewed positioning and alignment, supporting breast, off-centered (asymmetrical latch) and leading with the chin with big, open, wide gape. Infant latched optimally to the left breast in football position. Father of baby was given tips on how to support mother with . Education given to mother of how to visualize suck/swallow ratios and listen for drinking at the breast. was able to maintain latch without discomfort to mother other than a sensitivity that mother rated a 3 . has a nice rounded cheek line, flanged lips with a mouth wide open, deep latch with swallows visualized and heard. Occasionally, there is a click noise, however, latch remains with the appearance of optimal, no new pain other than tenderness and swallows are visualized and heard with the suck/swallow ratios of 2:1, 3:1.Nipple care reviewed with optimal latch, good positioning and using clean hands when feeding her and touching her breast. Mother voiced understanding of the education shared, to call for assistance if the does not latch or if there is discomfort with . Primary RN visualized the effective .
[2023-02-11 04:38] LABS: Hematocrit 31.7 % (37.0-47.0); Hemoglobin 10.5 g/dL (12.0-15.0)
[2023-02-11 04:59] VITALS: BP 129/83; PULSE 92; RESP 18; TEMP 36.7; O2SAT 96
[2023-02-11 08:10] VITALS: BP 136/89; PULSE 97; RESP 16; TEMP 36.6; O2SAT 96
[2023-02-11] MEDS: MULTIVIT/MIN/PREN/FOL AC/IRON TABLET 1 TAB PO (08:22)
[2023-02-11] MEDS: IBUPROFEN 600 MG TABLET PO (08:22)
[2023-02-11] MEDS: DOCUSATE SODIUM 100 MG CAPSULE PO (08:22)
[2023-02-11 12:24] VITALS: BP 128/84; PULSE 94; RESP 16; TEMP 36.9; O2SAT 95
--- NOTE | 2023-02-11 14:01 | WPDANLDPN2 ---
Anes-Prog Note L&D Date/Time: 02/11/23 14:01 Comfortable throughout: labor and delivery Neuraxial method: epidural Epidural/Spinal procedure site: clean & non-tender Neuro status: Neuro function grossly intact. Cardiovascular status: normal Respiratory status: normal Airway patency: baseline Mental status: baseline Post-Op hydration status: normal Vital Signs: Last Vital Signs Temp 36.9 C 02/11/23 12:24 Pulse 94 02/11/23 12:24 Resp 16 02/11/23 12:24 BP 128/84 02/11/23 12:24 Pulse Ox 95 02/11/23 12:24 O2 Del Method Room Air 02/11/23 08:20 Pain score (VAS): Patient asleep, no nonverbal signs of pain present at this time I/O: Intake & Output 02/10/23 02/11/23 02/11/23 23:59 07:59 15:59 Intake Total 400 Output Total 1100 1100 Balance -700 -1100 Post-procedural complaints: none Patient feedback: Patient satisfied with anesthetic care.
--- NOTE | 2023-02-11 15:30 | PC.NURSE ---
1458 - Call out for latch assessment. Mother is able to independently latch with appropriate positioning/alignment. She denies any nipple discomfort and is responsively . Mother has her infant latched to the right breast using football positioning and infant swallows are visualized and heard. Infant is currently meeting outcomes for weight, output, jaundice and feeding frequencies of 8-12 times in 24 hours. Mother declines any additional assistance/education at this time. Reminded parents to use good handwashing technique to prevent infection. Mother is feeding appropriately for growth of infant and understands stimulating to eat if needed. Mother states she is confident to continue effectively breastfeed her infant at home, when to call for assistance and denies any additional assistance or education at this time. Reinforced understanding of milk production, transition of milk, signs of adequate intake, transition of stool, prevention/relief of engorgement/mastitis, responsive watching for feeding cues, the different methods of stimulating infant to breastfeed 2-3 hours after the start of the last feeding, community resources and when to call a provider using the resource of the mom and baby guide. Mother voiced understanding of the education shared. Reported to the primary RN.
[2023-02-11 15:55] VITALS: BP 132/90
[2023-02-11 20:10] VITALS: BP 129/88; PULSE 103; RESP 18; TEMP 37.2
[2023-02-12 00:05] VITALS: BP 131/89; PULSE 89
[2023-02-12 07:55] VITALS: BP 142/95; PULSE 89; RESP 16; TEMP 37.2; O2SAT 97
[2023-02-12 09:15] VITALS: BP 133/90
--- NOTE | 2023-02-12 10:13 | P.PNOB_ITS ---
OB - PN: Subj Subjective Date/time seen: 02/11/23 0820 Interval history: No headaches scotomata or RUQ pain. Patient comments: pain well controlled, tolerating diet and other (Decreasing lochia.) baby status: doing well and nursing well [place] feeding status: exclusively breast feeding OB - PN: Obj Data Labs 02/11/23 04:31 02/08/23 12:54 OB - PN A/P Assessment and Plan (1) Vaginal delivery: Code(s): O80 - Encounter for full-term uncomplicated delivery Status: Acute Assessment and Plan: Doing well. (2) Pre-eclampsia: Code(s): O14.90 - Unspecified pre-eclampsia, unspecified trimester Status: Acute Assessment and Plan: No signs or symptoms of severe disease, blood pressure stable. Plan day: 1 Plan: routine care Comments: Patient doing well. Asymptomatic anemia. Continue routine care. Time Spent With Patient Time: Total time spent is greater than 50% in coordination of care (as documented) at patient's floor/unit and/or counseling patient: Review of Systems Review of Systems: All systems reviewed & are unremarkable except as noted in HPI and below Constitutional: Constitutional: Reports no additional constitutional complaints Cardiovascular: Cardiovascular: Denies dyspnea Respiratory: Respiratory: Denies dyspnea Gastrointestinal: Gastrointestinal: Reports no additional gastrointestinal complaints and Denies abdominal pain Genitourinary: Genitourinary: Reports no additional female genitourinary complaints Exam Const: General: no acute distress, alert and awake Resp: Effort & Inspection: normal respiratory effort GI: GI Palp: No Tenderness to palpation present (GI) Other: Fundus nontender, below umbilicus Psych: Appearance: grossly normal Affect: normal affect Other: Abd: fundus firm below umbilicus, nontender Perineum: healing Ext: nontender
--- NOTE | 2023-02-12 10:15 | PM.OBPNVD ---
OB - PN: Subj Subjective Date/time seen: 02/12/23 10:15 Interval history: No headaches scotomata or RUQ pain. Patient comments: pain well controlled, tolerating diet and other (Decreasing lochia.) baby status: doing well and nursing well [place] feeding status: exclusively breast feeding OB - PN: Obj Data Labs 02/11/23 04:31 02/08/23 12:54 OB - PN A/P Assessment and Plan (1) Vaginal delivery: Code(s): O80 - Encounter for full-term uncomplicated delivery Status: Acute Assessment and Plan: Doing well. Blood pressures stable. No signs or symptoms of severe pre-eclampsia. Discussed post delivery precautions and hypertension precautions. Plan day: 2 Plan: discharge home and other Comments: Patient doing well. Follow up 2 weeks. Discharge instructions provided. Time Spent With Patient Time: Total time spent is greater than 50% in coordination of care (as documented) at patient's floor/unit and/or counseling patient: Time with patient: less than 15 minutes Exam Psych: Affect: normal affect Other: Abd: fundus firm below umbilicus, nontender Ext: nontender
--- NOTE | 2023-02-12 10:17 | PM.OBDSVD ---
DS: Admitting Diagnosis Discharge Date 02/12/23 Admitting Diagnosis Pre- eclampsia. Medical induction of labor. DS: Discharge Diagnosis Discharge Diagnosis (1) Vaginal delivery: Code(s): O80 - Encounter for full-term uncomplicated delivery Status: Acute (2) Pre-eclampsia: Code(s): O14.90 - Unspecified pre-eclampsia, unspecified trimester Status: Acute OB - DS: Summary Hospital Course Hospital Course: She was admitted for [facility] for preeclampsia without severe features. She had Cervidil in the evening. She then had rupture of membranes assisted. Pitocin was started prior to this. She had a spontaneous vaginal delivery. She had a second-degree perineal laceration which was repaired. she did well. She did not have any signs or symptoms of severe preeclampsia during her admission. blood pressures range from 130s over 80s with an isolated 90 diastolic. Baby was doing well. She had adequate pain control was ambulating well tolerating regular food and was . She was discharged home on day 2. OB Procedures : Ultrasound OB Procedures Intrapartum: Spontaneous Vag Delivery OB Procedures: : None Peripartum Data Infant Delivery Method: Natural Vaginal Laceration Description: Perineal - 2nd Degree complications: none Time Spent with Patient Time attestation: Total time spent providing and/or coordinating discharge services: Exam Const: General: cooperative Orientation/consciousness: oriented to person, oriented to place and oriented to time HENMT: Face/Nose/Sinus: Normal external nose present Eyes: General: appearance normal, both eyes and all related structures Resp: Effort & Inspection: normal respiratory effort GI: Inspection: normal to inspection Skin: General skin exam: normal color Neuro: General: oriented to person, oriented to place and oriented to time Extrem: General: normal to inspection and no calf tenderness Psych: Appearance: grossly normal Mental Status: mental status grossly normal DS: Data Data Completed and Pending Pending studies at discharge: Pending at discharge 02/10/23 07:24 Surgical [PTH] Routine Discharge Plan Discharge Attending physician on discharge: Hammad Sánchez Consulting providers: Angel Peralta Discharging Clinician: Hammad Sánchez Anticipated Discharge Date/Time: 02/12/23 10:21 Patient Disposition: Home, Self-Care Activity: may shower and pelvic rest Diet: regular Patient Instructions: Antibiotic Form, Vaginal Delivery (DC), Hypertension During (DC) Stand Alone Forms: General Discharge Information Follow-up/Referrals: Hammad Sánchez MD [Physician] - Call for Appointment (1-2 weeks) Discharge Medications: Continued One A Day Women's DHA 28 mg iron- 800 mcg combo pack 1 pkg PO DAILY Date of admission: 02/08/23 12:30 Primary Care Provider: PHYSICIAN,ASSOCIATE PROFESSOR OF LIBRARY SCIENCE Admitting Provider: Hammad Sánchez Attending physician on admission: Hammad Sánchez Condition: Stable
[2023-02-13 11:15] VITALS: BP 133/83; PULSE 79; RESP 18; TEMP 36.8; O2SAT 100
== END 2023-02-12 11:58 | disposition home or self-care (01) | DRG 807 ==
LOC: ANHLDR 02-10 07:10 → ANHOB2 02-10 10:08
PROVIDERS: Admitting Provider Obstetrics & Gynecology; Visit Provider Obstetrics & Gynecology
DX: O75.2 Pyrexia during labor, not elsewhere classified (principal); Z37.0 Single live birth; O14.04 Mild to moderate pre-eclampsia, complicating childbirth; O69.2XX0 Labor and delivery complicated by other cord entanglement, with compression, not applicable or unspecified; O70.1 Second degree perineal laceration during delivery; O99.02 Anemia complicating childbirth; Z3A.38 38 weeks gestation of pregnancy
CPT/HCPCS: 36415; 59025; 76815; 80053; 81050; 82575; 84156; 84550; 85014; 85018; 85025; 86592; 86850; 86900; 86901; 88307; A9270; J0290; J2405; J2590; J2795; J3010; J7120

== ENCOUNTER 2023-08-04 10:36 | Outpatient (CLI) | payer OTHER, SELFPAY ==
--- NOTE | ~2023-08-04 | US_ITS ---
EXAMINATION: US OB <=14 wk fetus w TV DATE: 08/04/2023 15:21 INDICATION: First trimester with inconclusive viability TECHNIQUE: Real-time pelvic ultrasound utilizing both a transvaginal and transabdominal probe was pe rformed. The interpreting radiologist was not present for the study. COMPARISON: None. FINDINGS: The uterus measures 9.2 x 6.0 x 7.1 cm. There is an intrauterine gestational sac. A yolk sac and fet al pole are identified. The crown rump length measures 2.1 cm, which correlates with an estimated ges tational age of 8 weeks and 5 days. heart motion is identified measuring 181 beats per minute ( bpm) by M-mode Doppler. The right ovary is not visualized. The left ovary measures 3.0 x 2.7 x 2.2 cm. 1.8 cm likely corpus l uteum cyst in the left ovary. Vascular flow is identified on the left ovary on color Doppler. There i s no free fluid in the pelvis. IMPRESSION: 1. Single living fetus with heart rate of 181 bpm. 2. Gestational age by ultrasound of 8 weeks 5 day(s) +/- 5 day(s) with ultrasound estimated date of delivery (VITALY) of 03/10/2024. Reviewed, dictated and finalized at location A[facility] IMPRESSION: 1. Single living fetus with heart rate of 181 bpm. 2. Gestational age by ultrasound of 8 weeks 5 day(s) +/- 5 day(s) with ultraso und estimated date of delivery (VITALY) of 03/10/2024.
== END 2023-08-04 10:37 | disposition home or self-care (01) ==
LOC: ANHIMG 10:38
PROVIDERS: Visit Provider Registered Nurse
DX: O36.80X0 Pregnancy with inconclusive fetal viability, not applicable or unspecified (principal); Z3A.00 Weeks of gestation of pregnancy not specified
CPT/HCPCS: 76801; 76817

== ENCOUNTER 2023-08-11 13:10 | Outpatient (CLI) | payer OTHER, SELFPAY ==
[2023-08-11 13:45] LABS: Hematocrit 42.5 % (37.0-47.0); Mean Corpuscular HGB Conc 32.9 g/dl (32-36); Mean Corpuscular Hemoglobin 28.9 pg (26-34); Mean Corpuscular Volume 87.8 fl (80-100); Mean Platelet Volume 9.6 fl (7.4-10.4); Platelet Count Result 279 k/mm3 (150-375); Red Blood Count 4.84 M/mm3 (4.2-5.4); Red Cell Distribution Width 12.5 % (11.5-14.5); White Blood Count 10.7 K/mm3 (4.5-10.0)
[2023-08-11 13:47] LABS: Appearance Urine Clear (Clear); Bilirubin Urine Negative (Negative); Blood Urine Negative (Negative); Color Urine Yellow (Yellow); Glucose Urine UA Negative (Negative); Ketones Urine Negative (Negative); Leukocyte Esterase Ur Negative LEU/UL (NEGATIVE); Nitrate Urine Negative (Negative); Protein Urine Negative (Negative); Specific Grav Ur 1.015 (1.001-1.035); Urobilinogen Urine 0.2 mg/dL (<2.0); pH Urine 6.5 (5.0-9.0)
[2023-08-11 13:48] LABS: Add Urine Microscopic? NO
[2023-08-11 14:25] LABS: Thyroid Stimulating Hormone 0.763 uIU/mL (0.465-4.680)
[2023-08-11 14:35] LABS: HIV 1/2 Ab P24 Ag Result Negative (Negative)
[2023-08-11 14:44] LABS: Vitamin D 25 Hydroxy 27.1 ng/mL
[2023-08-11 15:01] LABS: Hepatitis B Surface Antigen Negative (Negative); Rubella IgG Antibody 13.5 IU/ML
[2023-08-11 15:17] LABS: Hepatitis C Virus Antibody Negative (Negative)
[2023-08-12 11:52] LABS: Rapid Plasma Reagin Non-Reactive (NonReactive)
[2023-08-17 15:04] LABS: Hematocrit 45.1 % (35.0-45.0); MCH 28.6 pg (27.0-33.0); RDW 12.2 % (11.0-15.0)
== END 2023-08-11 13:11 | disposition home or self-care (01) ==
PROVIDERS: Visit Provider Obstetrics & Gynecology
DX: Z34.90 Encounter for supervision of normal pregnancy, unspecified, unspecified trimester (principal)
CPT/HCPCS: 36415; 81003; 81243; 82306; 83021; 84443; 85027; 86592; 86703; 86762; 86787; 86803; 86850; 86900; 86901; 87086; 87340; G0432

== ENCOUNTER 2023-12-20 07:21 | Outpatient (CLI) | payer OTHER, SELFPAY ==
[2023-12-20 08:54] LABS: Basophils Percent Auto 0.3 % (0.2-1.2); Eosinophils Absolute Auto 0.1 K/mm3 (0-0.3); Eosinophils Percent Auto 0.6 % (0-4.4); Hematocrit 37.7 % (37.0-47.0); Hemoglobin 12.3 g/dL (12.0-15.0); Immature Granulocyte Absolute 0.12 K/mm3 (0.00-0.031); Immature Granulocyte Percent A 1.2 % (0-0.5); Lymphocytes Absolute Auto 1.35 K/mm3 (0.9-3.2); Lymphocytes Percent Auto 13.6 % (18.3-44.2); Mean Corpuscular HGB Conc 32.6 g/dl (32-36); Mean Corpuscular Hemoglobin 30.7 pg (26-34); Mean Platelet Volume 9.4 fl (7.4-10.4); Monocytes Absolute Auto 0.4 K/mm3 (0.1-0.6); Monocytes Percent Auto 4.3 % (2.6-8.5); Neutrophils Absolute Auto 7.9 K/mm3 (1.3-6.7); Platelet Count Result 187 k/mm3 (150-375); Red Blood Count 4.01 M/mm3 (4.2-5.4); White Blood Count 9.9 K/mm3 (4.5-10.0)
[2023-12-20 09:09] LABS: Glucose 1 Hour PP 50gm Dose 116 mg/dL
== END 2023-12-20 07:22 | disposition home or self-care (01) ==
LOC: ANHLAB 07:22
PROVIDERS: Visit Provider Nurse Practitioner Obstetrics & Gynecology
DX: Z34.90 Encounter for supervision of normal pregnancy, unspecified, unspecified trimester (principal); Z3A.00 Weeks of gestation of pregnancy not specified
CPT/HCPCS: 36415; 82947; 85025

== ENCOUNTER 2024-01-27 08:48 | Outpatient (CLI) | payer OTHER, SELFPAY ==
[2024-01-27 10:05] LABS: Basophils Percent Auto 0.3 % (0.2-1.2); Eosinophils Absolute Auto 0.1 K/mm3 (0-0.3); Eosinophils Percent Auto 0.5 % (0-4.4); Hemoglobin 12.8 g/dL (12.0-15.0); Immature Granulocyte Absolute 0.11 K/mm3 (0.00-0.031); Lymphocytes Percent Auto 15.4 % (18.3-44.2); Mean Corpuscular HGB Conc 33.7 g/dl (32-36); Mean Platelet Volume 10.3 fl (7.4-10.4); Monocytes Absolute Auto 0.6 K/mm3 (0.1-0.6); Monocytes Percent Auto 5.8 % (2.6-8.5); Neutrophils Absolute Auto 8.5 K/mm3 (1.3-6.7); Platelet Count Result 212 k/mm3 (150-375); Red Blood Count 4.13 M/mm3 (4.2-5.4)
[2024-01-27 10:56] LABS: HIV 1/2 Ab P24 Ag Result Negative (Negative)
[2024-01-28 07:51] LABS: Rapid Plasma Reagin Non-Reactive (NonReactive)
== END 2024-01-27 08:49 | disposition home or self-care (01) ==
LOC: ANHLAB 08:49
PROVIDERS: Visit Provider Nurse Practitioner Family
DX: Z34.93 Encounter for supervision of normal pregnancy, unspecified, third trimester (principal)
CPT/HCPCS: 36415; 85025; 86592; 86703; G0432

== ENCOUNTER 2024-03-01 11:49 | Outpatient (CLI) | payer OTHER, SELFPAY ==
[2024-03-01 12:18] LABS: Basophils Percent Auto 0.4 % (0.2-1.2); Eosinophils Absolute Auto 0.1 K/mm3 (0-0.3); Eosinophils Percent Auto 0.6 % (0-4.4); Hemoglobin 12.1 g/dL (12.0-15.0); Immature Granulocyte Absolute 0.07 K/mm3 (0.00-0.031); Immature Granulocyte Percent A 0.8 % (0-0.5); Lymphocytes Absolute Auto 1.59 K/mm3 (0.9-3.2); Lymphocytes Percent Auto 18.9 % (18.3-44.2); Mean Corpuscular HGB Conc 33.6 g/dl (32-36); Mean Corpuscular Hemoglobin 30.7 pg (26-34); Mean Corpuscular Volume 91.4 fl (80-100); Mean Platelet Volume 10.1 fl (7.4-10.4); Monocytes Absolute Auto 0.6 K/mm3 (0.1-0.6); Monocytes Percent Auto 6.9 % (2.6-8.5); Neutrophils Absolute Auto 6.1 K/mm3 (1.3-6.7); Neutrophils Percent Auto 72.4 % (45.5-73.1); Platelet Count Result 214 k/mm3 (150-375); Red Blood Count 3.94 M/mm3 (4.2-5.4); White Blood Count 8.4 K/mm3 (4.5-10.0)
[2024-03-01 12:30] LABS: Alanine Aminotransferase 14 U/L (6-35); Albumin Level 3.8 g/dL (3.5-5.1); Alkaline Phosphatase 139 U/L (38-126); Anion Gap 10 mmol/L (4-12); Aspartate Amino Transferase 23 U/L (14-36); Bilirubin,Total 0.2 mg/dL (0.2-1.3); Blood Urea Nitrogen 7 mg/dL (7-17); Calcium 8.6 mg/dL (8.4-10.2); Carbon Dioxide 20 mmol/L (22-30); Chloride 105 mmol/L (98-107); Estimated Glomerular Filt Rate > 60; Glucose 83 mg/dL (65-110); Potassium 3.6 mmol/L (3.4-5.0); Sodium 135 mmol/L (137-145); Uric Acid 3.7 mg/dL (2.5-7.5)
[2024-03-01 12:43] VITALS: BP 127/78; PULSE 75
[2024-03-01 12:45] VITALS: BP 125/83; BP 127/78; PULSE 74; PULSE 84; BMI 35.0
[2024-03-01 12:54] LABS: Creatinine Urine 40.2 mg/dL; Total Protein Urine Random 11 mg/dL; Ur Ttl Prot Creatinine Ratio 0.27 mg/mg (0-0.20)
[2024-03-01 13:00] VITALS: BP 128/70; PULSE 76
[2024-03-01 13:01] LABS: Add Urine Microscopic? YES; Appearance Urine Clear (Clear); Bacteria Urine None Seen /hpf; Bilirubin Urine Negative (Negative); Blood Urine Negative (Negative); Color Urine Yellow (Yellow); Glucose Urine UA Negative (Negative); Ketones Urine Negative (Negative); Leukocyte Esterase Ur 1+ LEU/UL (Negative); Need Manual Microscopic Reviewed; Nitrate Urine Negative (Negative); Non Pathogenic Casts 0-2; Protein Urine Negative (Negative); RBC Urine 0-2 /hpf (0-2); Specific Grav Ur 1.009 (1.001-1.035); Squamous Epithelial Cell Urine Occasional /hpf (Few); Urobilinogen Urine 0.2 mg/dL (<2.0); WBC Urine 0-5 /hpf (0-3); pH Urine 7.5 (5.0-9.0)
[2024-03-01 13:15] VITALS: BP 126/76; PULSE 79
--- NOTE | 2024-03-01 13:16 | PC.NURSE ---
Dr. Sánchez informed this pt was sent from the office with elevated BP's. Informed of BP's, and labs. Order received to send pt home to complete 24 hr urine collection.
== END 2024-03-01 13:20 | disposition home or self-care (01) ==
LOC: ANHOBOP 11:56 → ANHLDR 11:57
PROVIDERS: Visit Provider Obstetrics & Gynecology
DX: O13.9 Gestational [pregnancy-induced] hypertension without significant proteinuria, unspecified trimester (principal); Z3A.00 Weeks of gestation of pregnancy not specified
CPT/HCPCS: 36415; 59025; 80053; 81001; 82570; 84156; 84550; 85025; 87086; 87088; 99199

== ENCOUNTER 2024-03-02 14:12 | Outpatient (CLI) | payer OTHER, SELFPAY ==
[2024-03-02 14:28] VITALS: BMI 35.0
[2024-03-02 14:53] LABS: Collection Time Urine 24 HOURS
[2024-03-02 15:07] LABS: Total Volume 24 Hour Urine 1800 ml
[2024-03-02 15:08] LABS: Patient Weight 210 Lbs
[2024-03-02 15:18] LABS: Total Protein Urine 24 Hr 126 mg/24hr (28-141); Total Protein Urine Random 7 mg/dL
[2024-03-02 15:21] LABS: Creatinine Clearance Urine 165.7 ml/min (75-125); Creatinine Urine 77.1 mg/dL
== END 2024-03-02 14:13 | disposition home or self-care (01) ==
LOC: ANHOBOP 14:19
PROVIDERS: Visit Provider Obstetrics & Gynecology
DX: Z34.80 Encounter for supervision of other normal pregnancy, unspecified trimester (principal)
CPT/HCPCS: 81050; 82575; 84156

== ENCOUNTER 2024-03-13 16:23 | Inpatient (IN) | payer OTHER, SELFPAY ==
[2024-03-13] VITALS (34 sets, daily range): BP systolic 111–143; BP diastolic 60–84; PULSE 82–106; TEMP 36.5–37.2; O2SAT 94–98; BMI 35.7
--- NOTE | 2024-03-13 16:09 | LDADM ---
This patient, Chayito Nugent, was admitted to Labor/Delivery/Recovery 108 on 03/13/24 at 16:23. Plans for labor, pain management and were discussed with patient. Patient/family oriented to hospital policies and general routines including ID bracelet, bed and alarms, visiting hours, pain management, procedures, bathroom and other care routines, personal items, smoking policy, room service/diet and guest tray routines, infant security routines, and visiting hours. Patient/Family are encouraged to report perceived risks to care and to ask questions if they do not understand what they are told or what they should do. See OBIX for further documentation.
[2024-03-13 17:12] LABS: Basophils Percent Auto 0.3 % (0.2-1.2); Eosinophils Absolute Auto 0.1 K/mm3 (0-0.3); Eosinophils Percent Auto 0.8 % (0-4.4); Hematocrit 36.8 % (37.0-47.0); Hemoglobin 12.4 g/dL (12.0-15.0); Immature Granulocyte Absolute 0.08 K/mm3 (0.00-0.031); Immature Granulocyte Percent A 0.8 % (0-0.5); Lymphocytes Absolute Auto 1.85 K/mm3 (0.9-3.2); Lymphocytes Percent Auto 19.2 % (18.3-44.2); Mean Corpuscular HGB Conc 33.7 g/dl (32-36); Mean Corpuscular Hemoglobin 30.5 pg (26-34); Mean Corpuscular Volume 90.6 fl (80-100); Mean Platelet Volume 10.3 fl (7.4-10.4); Monocytes Absolute Auto 0.8 K/mm3 (0.1-0.6); Monocytes Percent Auto 8.7 % (2.6-8.5); Neutrophils Absolute Auto 6.8 K/mm3 (1.3-6.7); Neutrophils Percent Auto 70.2 % (45.5-73.1); Platelet Count Result 208 k/mm3 (150-375); Red Blood Count 4.06 M/mm3 (4.2-5.4); White Blood Count 9.7 K/mm3 (4.5-10.0)
[2024-03-13] MEDS: DINOPROSTONE 10 MG VAG INSERT VAGINAL (17:19)
--- NOTE | 2024-03-13 17:25 | WPDANESEPP ---
Anes - Eval Pre Procedure Procedure: Labor epidural Date/Time: 03/13/24 17:25 Surgeon: Princess Preop Diagnosis: Abdominal pain with contractions Pre Op Diagnosis: Induction Patient Data Age: 28 Gender: F Height: 1.65 m Weight: 97.5 kg Last Vital Signs Pulse 82 03/13/24 17:23 BP 128/73 03/13/24 17:23 O2 Del Method Room Air 03/13/24 16:58 Allergies Allergy/AdvReac Type Severity Reaction Status Date / Time No Known Allergies Allergy Verified 03/08/24 09:51 Home Medications Medication Instructions Recorded Confirmed Type vits 75-iron 28 mg-folic 1 pkg PO DAILY 05/14/22 03/01/24 History acid 800 mcg-omega-3 oral combo pack (One A Day Women's DHA) aspirin 81 mg tablet,delayed 81 mg PO DAILY 01/13/24 03/01/24 History release (Adult Low Dose Aspirin) Laboratory Tests 03/13/24 16:30 WBC Pending RBC Pending Hgb Pending Hct Pending MCV Pending MCH Pending MCHC Pending RDW Pending Plt Count Pending MPV Pending Immature Gran % (Auto) Pending Neut % (Auto) Pending Lymph % (Auto) Pending Wharton % (Auto) Pending Eos % (Auto) Pending Baso % (Auto) Pending Lymph # (Auto) Pending Wharton # (Auto) Pending Eos # (Auto) Pending Baso # (Auto) Pending Abs Immat Gran (auto) Pending Absolute Neuts (auto) Pending Absolute Nucleated RBC Pending Nucleated RBC % Pending RPR Pending HIV 1&2 Ab/P24 Ag 4thGn Pending Blood Type Pending Antibody Screen Pending : gestational age HCG: positive Patient hx anesthesia problems: none Family hx anesthesia problems: none Results Review: All pre-operative results and documents have been reviewed as part of the pre-operative evaluation. PENDING SALE TO [facility] Past Medical History Medical History Obesity Vaginal delivery Family History Family History Grandparent Cancer Social History Social History Smoking status: Never smoker Second hand tobacco smoke exposure: Yes Alcohol intake: never Substance use: never Do You Feel Safe in your Home?: Yes Lack of Transportation: No Lack of Food: Never True Current Housing: I Have Housing Concerned About Future Housing: No Difficulty Paying Gas/Electric Bills: No Difficulty Paying for Meds: No Currently Unemployed: No Education: Bachelor's Degree Difficulty w/ Childcare or Family Care: No Living arrangements: with family Occupation/Education: unemployed Additional occupation/education comments: Stay at home mom Gender identity (if verbalized by the patient): Female Sexual Orientation (if Verbalized by the Patient): Straight or Heterosexual Spiritual care concerns: No Exam Day of Procedure 03/13/24 17:25 Patient weight: overweight and obese Heart: regular rate and rhythm Lungs: clear to auscultation Airway: Mallampati scale class II Neurological: alert and oriented
[2024-03-13 17:48] LABS: Rapid Plasma Reagin Non-Reactive (NonReactive)
[2024-03-13 18:07] LABS: HIV 1/2 Ab P24 Ag Result Negative (Negative)
[2024-03-14] VITALS (92 sets, daily range): BP systolic 99–145; BP diastolic 54–92; PULSE 63–132; RESP 16; TEMP 36.1–37.1; O2SAT 92–100
[2024-03-14] MEDS: LACTATED RINGERS 1,000 ML 125 ML IV CONT ×2 (05:43→10:04)
[2024-03-14] MEDS: OXYTOCIN 30 UNITS/NS 500 ML 30 UNITS/500 ML BAG IV CONT (05:49)
[2024-03-14] MEDS: OXYTOCIN 30 UNITS/NS 500 ML 30 UNITS/500 ML BAG 125 UNITS IV CONT (14:48)
--- NOTE | 2024-03-14 17:20 | OBPPTRN ---
Patient transferred to post room #290 via wheelchair. Support person present. Oriented to unit, room, information board, rooming in, admission packet and security measures. Patient verbalizes understanding.
[2024-03-14] MEDS: IBUPROFEN 600 MG TABLET PO (17:55)
[2024-03-14] MEDS: DOCUSATE SODIUM 100 MG CAPSULE PO (17:55)
--- NOTE | 2024-03-14 22:05 | PM.IMHP ---
H&P: HPI History of Present Illness Date/Time: 03/14/24 22:05 Chief Complaint: Induction of labor Narrative: 28 y/o at 40 weeks admitted for [facility]. PNC significant for velementous cord insertion. weight within normal limits. She has opted for induction of labor, risk benefits and alternatives discussed. Review of Systems Review of Systems: All systems reviewed & are unremarkable except as noted in HPI and below Constitutional: Constitutional: Reports no additional constitutional complaints and Denies headache(s) Eyes: Eyes: Denies spots in vision ENT: Reports system reviewed and no additional complaints, except as documented and Denies headache(s) Cardiovascular: Cardiovascular: Denies chest pain and Denies dyspnea Respiratory: Respiratory: Denies dyspnea Gastrointestinal: Gastrointestinal: Reports no additional gastrointestinal complaints Genitourinary: Genitourinary: Reports amenorrhea Musculoskeletal: Musculoskeletal: Reports no additional musculoskeletal complaints Integumentary/Breasts: Skin/Breast: Denies breast mass and Denies rash Neurologic: Denies headache(s) Psychiatric: Psychiatric: Reports no additional psychiatric complaints [facility] Past Medical History Medical History Obesity Vaginal delivery Family History Family History Grandparent Cancer Social History Social History Smoking status: Never smoker Second hand tobacco smoke exposure: Yes Alcohol intake: never Substance use: never Do You Feel Safe in your Home?: Yes Lack of Transportation: No Lack of Food: Never True Current Housing: I Have Housing Concerned About Future Housing: No Difficulty Paying Gas/Electric Bills: No Difficulty Paying for Meds: No Currently Unemployed: No Education: Bachelor's Degree Difficulty w/ Childcare or Family Care: No Living arrangements: with family Occupation/Education: unemployed Additional occupation/education comments: Stay at home mom Gender identity (if verbalized by the patient): Female Sexual Orientation (if Verbalized by the Patient): Straight or Heterosexual Spiritual care concerns: No Meds Home Medications and Allergies Home Medications Medication Instructions Recorded Confirmed Type vits 75-iron 28 mg-folic 1 pkg PO DAILY 05/14/22 03/14/24 History acid 800 mcg-omega-3 oral combo pack (One A Day Women's DHA) aspirin 81 mg tablet,delayed 81 mg PO DAILY 01/13/24 03/14/24 History release (Adult Low Dose Aspirin) Allergies Allergy/AdvReac Type Severity Reaction Status Date / Time No Known Allergies Allergy Verified 03/08/24 09:51 Vital Signs Vital Signs - 24 hr 03/13/24 22:10 03/13/24 22:15 03/13/24 22:20 Temperature Pulse Rate 89 Respiratory Rate Blood Pressure 123/77 Pulse Oximetry 97 98 97 Oxygen Delivery 03/13/24 22:25 03/13/24 22:30 03/13/24 22:31 Temperature Pulse Rate 87 Respiratory Rate Blood Pressure 113/67 Pulse Oximetry 98 96 Oxygen Delivery 03/13/24 22:32 03/13/24 22:37 03/13/24 22:42 Temperature Pulse Rate Respiratory Rate Blood Pressure Pulse Oximetry 96 97 97 Oxygen Delivery 03/13/24 22:44 03/13/24 22:45 03/13/24 22:49 Temperature Pulse Rate 90 Respiratory Rate Blood Pressure 112/65 Pulse Oximetry 97 95 Oxygen Delivery 03/13/24 22:54 03/13/24 22:59 03/13/24 23:00 Temperature Pulse Rate 95 Respiratory Rate Blood Pressure 111/61 Pulse Oximetry 95 96 Oxygen Delivery 03/13/24 23:04 03/13/24 23:09 03/13/24 23:14 Temperature 98.9 F Pulse Rate Respiratory Rate Blood Pressure Pulse Oximetry 96 94 97 Oxygen Delivery 03/13/24 23:15 03/14/24 03:31 03/14/24 04:01 [facility]
--- NOTE | 2024-03-14 22:11 | PM.OBPNVD ---
OB - PN: Subj Subjective Date/time seen: 03/14/24 0830 Cat 1, ctx q 3, AROM light meconium, cervix /-2. Continue Pitocin. OB - PN: Obj Data Labs 03/13/24 16:30 OB - PN A/P Time Spent With Patient Time: Total time spent is greater than 50% in coordination of care (as documented) at patient's floor/unit and/or counseling patient:
--- NOTE | 2024-03-14 22:12 | P.PCNOB_ITS ---
OB - Vaginal Delivery Note Procedure Delivery date: 03/14/24 Events: Other (velementous cord insertion) Induction method: Per Cervidil Protocol Delivery augmentation: Rupture of Membranes and Pitocin Delivery monitor: External FHT and Internal Uterine Route of delivery: Episiotomy description: Left Mediolateral Delivery repair: vicryl (3.0 vicryl) Specimen: Yes (placenta and cord) Quantitative Blood Loss (ml): 250 Anesthesia type: Epidural Disposition: Floor Complications: No immediate complications Narrative: She was admitted the evening of 03/13/24 for admission for [facility] with cervidil. Cervidil removed the morning of 03/14/24. Pitocin started. She had AROM light meconium. She did have IUPC placed. She had epidural placed on request. She delivered a male infant. Peds available due to meconium. Nose and mouth suctioned at perineum. Mild shoulder dystocial relieved with modified neel, and episiotomy and suprapubic pressure, lasted approx 45 sec. After shoulder delivered, the rest of the infant was delivered and cord doubly clamped and cut. taken to warmer. There was a right compound hand presentation. Terminal meconium noted. Pitocin started. Placenta delivered with trailing membranes. Small amount of membranes removed from lower uterine segment. The episiotomy repaired with 3.0 vicryl. Baby Date of : 03/14/24 Gestational Age by Date: 40 gender: Male Weight (pounds): 8 Weight (ounces): 3 presentation: vertex position: Right Occiput Anterior Placenta delivery description: Spontaneous Cord Vessel Description: 3 Vessels score one minute: 7 score five minutes: 9
[2024-03-15] MEDS: ACETAMINOPHEN 325 MG TABLET 650 MG PO ×2 (00:32→11:26)
[2024-03-15] MEDS: IBUPROFEN 600 MG TABLET PO ×2 (00:32→11:24)
[2024-03-15 05:30] VITALS: BP 129/84; PULSE 80; RESP 16; TEMP 36.9; O2SAT 97
[2024-03-15 06:05] LABS: Hematocrit 34.3 % (37.0-47.0); Hemoglobin 11.6 g/dL (12.0-15.0)
[2024-03-15] MEDS: MULTIVIT/MIN/PREN/FOL AC/IRON TABLET 1 TAB PO (07:16)
[2024-03-15 07:45] VITALS: BP 107/60; PULSE 84; RESP 18; TEMP 36.6; O2SAT 97
--- NOTE | 2024-03-15 09:50 | PM.OBPNVD ---
OB - PN: Subj Subjective Date/time seen: 03/15/24 09:50 Interval history: She request discharge today. Patient comments: pain well controlled, tolerating diet and other (Decreasing lochia.) [place] baby status: doing well and nursing well OB - PN: Obj Data Labs 03/15/24 05:59 Labs: Laboratory Results - last 24 hr 03/15/24 05:59 Hgb 11.6 L Hct 34.3 L OB - PN A/P Assessment and Plan (1) Vaginal delivery: Code(s): O80 - Encounter for full-term uncomplicated delivery Status: Acute Assessment and Plan: 1. day 1. She is doing well. She requests discharge to home today. Discharge precautions discussed. Will discharge home when baby is discharged. Plan day: 1 Plan: routine care and discharge home Comments: Patient doing well. Time Spent With Patient Time: Total time spent is greater than 50% in coordination of care (as documented) at patient's floor/unit and/or counseling patient: Exam Psych: Affect: normal affect Other: Abd: fundus firm below umbilicus, nontender Perineum: healing Ext: nontender
--- NOTE | 2024-03-15 09:55 | PM.OBDSVD ---
DS: Admitting Diagnosis Discharge Date 03/15/24 Admitting Diagnosis Induction of labor DS: Discharge Diagnosis Discharge Diagnosis (1) Vaginal delivery: Code(s): O80 - Encounter for full-term uncomplicated delivery Status: Acute OB - DS: Summary Hospital Course Hospital Course: She was admitted for Induction of labor. She had uncomplicated vaginal delivery. She did well . Baby did well . She requested discharge home on day 1. OB Procedures : NST and Ultrasound OB Procedures Intrapartum: Spontaneous Vag Delivery and Episiotomy ( Left mediolateral) OB Procedures: : None Peripartum Data Infant Delivery Method: Natural Vaginal Episiotomy description: Left Mediolateral complications: none Status at Discharge Functional status at discharge: independent ambulation Time Spent with Patient Time attestation: Total time spent providing and/or coordinating discharge services: Exam Const: General: cooperative Orientation/consciousness: oriented to person, oriented to place and oriented to time HENMT: Face/Nose/Sinus: Normal external nose present Eyes: General: appearance normal, both eyes and all related structures Resp: Effort & Inspection: normal respiratory effort GI: Inspection: normal to inspection Skin: General skin exam: normal color Neuro: General: oriented to person, oriented to place and oriented to time Extrem: General: normal to inspection and no calf tenderness Psych: Appearance: grossly normal Mental Status: mental status grossly normal DS: Data Data Completed and Pending Pending studies at discharge: Pending at discharge 03/14/24 14:49 Surgical [PTH] Routine Labs on day of discharge: Labs from last 24 hours 03/15/24 05:59 Hgb 11.6 L Hct 34.3 L Discharge Plan Discharge Attending physician on discharge: Hammad Sánchez Consulting providers: Angel Peralta Jr. Discharging Clinician: Hammad Sánchez Anticipated Discharge Date/Time: 03/15/24 15:00 Patient Disposition: Home, Self-Care Activity: may shower, no straining and pelvic rest Diet: regular Patient Instructions: Antibiotic Form Stand Alone Forms: General Discharge Information Follow-up/Referrals: Hammad Sánchez MD [Physician] - 2 Weeks (Call for appointment) Discharge Medications: Continued One A Day Women's DHA 28 mg iron- 800 mcg combo pack 1 pkg PO DAILY Discontinued aspirin [Adult Low Dose Aspirin] 81 mg tablet,delayed release (DR/EC) 81 mg PO DAILY Date of admission: 03/13/24 16:23 Primary Care Provider: UNKNOWN,DOCTOR Admitting Provider: Hammad Sánchez Attending physician on admission: Hammad Sánchez Condition: Stable
--- NOTE | 2024-03-15 11:30 | PC.NURSE ---
Patient chooses to pump and bottle feed. This was her feeding plan with her first baby and she pumped for 4 months. She has several pumps at home that she is comfortable using. Instructions given on consistent usage, that there should be no pain, pumping schedule for milk production, collection, and storage of human milk. Patient knows to stimulate for adequate milk production every 3 hours (8 times in 24 hours) 1-2 times at night. We discussed signs and symptoms of mastitis and when to call her doctor. She knows how to massage plugged milk ducts as needed.?Mother voiced understanding of the education shared along with mom/baby guide for additional resource information. Reported to the Primary RN.
[2024-03-15 12:22] VITALS: BP 119/68; PULSE 101; RESP 16; TEMP 36.5; O2SAT 99
--- NOTE | 2024-03-15 12:56 | WPDANLDPN2 ---
Anes-Prog Note L&D Date/Time: 03/15/24 12:56 Comfortable throughout: labor and delivery Neuraxial method: epidural Epidural/Spinal procedure site: clean & non-tender Neuro status: Neuro function grossly intact. Cardiovascular status: normal Respiratory status: normal Airway patency: baseline Mental status: baseline Post-Op hydration status: normal Vital Signs: Last Vital Signs Temp 36.5 C 03/15/24 12:22 Pulse 101 H 03/15/24 12:22 Resp 16 03/15/24 12:22 BP 119/68 03/15/24 12:22 Pulse Ox 99 03/15/24 12:22 O2 Del Method Room Air 03/14/24 20:24 Pain score (VAS): 07/14 Post-procedural complaints: none Patient feedback: Patient satisfied with anesthetic care.
[2024-03-16 13:49] VITALS: BP 132/84; PULSE 78; RESP 18; TEMP 36.5; O2SAT 97
== END 2024-03-15 17:12 | disposition home or self-care (01) | DRG 807 ==
LOC: ANHLDR 16:24 → ANHOB2 03-14 17:40
PROVIDERS: Admitting Provider Obstetrics & Gynecology; Visit Provider Obstetrics & Gynecology
DX: O43.123 Velamentous insertion of umbilical cord, third trimester (principal); Z37.0 Single live birth; Z3A.40 40 weeks gestation of pregnancy; O77.0 Labor and delivery complicated by meconium in amniotic fluid; O66.0 Obstructed labor due to shoulder dystocia; O32.6XX0 Maternal care for compound presentation, not applicable or unspecified
CPT/HCPCS: 36415; 85014; 85018; 85025; 86592; 86703; 86850; 86900; 86901; 88307; A9270; G0432; J2590; J2795; J7120